=== PATIENT | male | born 1965 | race Hispanic/Latino ===

== ENCOUNTER 2022-12-16 15:43 | Emergency (ER) | payer OTHER ==
[~2022-12-16] VITALS: Ht 167.6 cm; Wt 78.9 kg
[2022-12-16 16:17] LABS: APPEARANCE,URINE CLEAR (CLEAR); BILIRUBIN,URINE NEGATIVE (NEGATIVE); COLOR,URINE YELLOW (YELLOW); GLUCOSE, URINE (UA) NEGATIVE (NEGATIVE); KETONES,URINE NEGATIVE (NEGATIVE); LEUKOCYTE ESTERASE ,URINE NEGATIVE Leu/uL (NEGATIVE); NITRATE,URINE NEGATIVE (NEGATIVE); OCCULT BLOOD,URINE NEGATIVE (NEGATIVE); PH,URINE 5.5 (5.0-8.0); PROTEIN,URINE 10 mg/dL (NEGATIVE); UROBILINOGEN,URINE 3 mg/dL (0.2-1.0)
[2022-12-16 16:24] LABS: BASOPHILS % (AUTO) 0.5 % (0.0-5.0); EOSINOPHILS % (AUTO) 2.5 % (0.0-8.0); HEMATOCRIT 49.4 % (42-54); LYMPHOCYTES % (AUTO) 15.6 % (21.0-51.0); MEAN CORPUSCULAR HEMOGLOBIN 34.7 pg (27.0-33.0); MEAN CORPUSCULAR HGB CONC 34.8 g/dL (32.0-36.0); MEAN CORPUSCULAR VOLUME 99.6 fL (79-99); MONOCYTES % (AUTO) 8.8 % (3.0-13.0); NEUTROPHILS % (AUTO) 72.2 % (40.0-77.0); PLATELET COUNT (AUTO) 256 K/uL (130-400); RED BLOOD CELL COUNT(AUTO) 4.96 MIL/uL (4.50-6.20); RED CELL DISTRIBUTION WIDTH 11.9 % (11.0-15.5); WHITE BLOOD COUNT (AUTO) 11.7 K/uL (4.8-10.8)
[2022-12-16 16:44] LABS: BACTERIA,URINE RARE /HPF (None Seen); MUCUS,URINE FEW LPF (None Seen); RBC,URINE 0-1 /HPF (0-1)
[2022-12-16 16:48] LABS: ALBUMIN 3.8 g/dL (3.5-5.0); CREATININE 0.9 mg/dL (0.5-1.5); POTASSIUM 3.2 mmol/L (3.5-5.1); TOTAL PROTEIN, SERUM 7.8 g/dL (6.0-8.3)
[2022-12-16] MEDS ORDERED: POTASSIUM BICARB/CIT AC 25 MEQ TABLET.EFF PO SCH (17:30)
[2022-12-16 21:05] VITALS: BP 116/60
== END 2022-12-16 21:11 | disposition home or self-care (01) ==
LOC: EDH 15:43
DX: K80.50 Calculus of bile duct without cholangitis or cholecystitis without obstruction (principal); R19.7 Diarrhea, unspecified; F17.200 Nicotine dependence, unspecified, uncomplicated; Z20.822 Contact with and (suspected) exposure to COVID-19
CPT/HCPCS: 99284; 74176; 76705; 87635; 84484; 80053; 83690; 85025; 87804 ×2; 83605; 81001; 36415; 93005; C9803

== ENCOUNTER 2024-04-26 11:55 | Emergency (ER) | payer SELFPAY ==
[~2024-04-26] VITALS: Ht 170.2 cm; Wt 79.4 kg
--- NOTE | 2024-04-26 12:19 | ERN ---
General Chief Complaint: Abdominal Pain Stated Complaint: EPIGASTRIC PAIN, LUQ PAIN Time Seen by MD: 11:58 Source: patient History of Present Illness Initial Comments Patient is a 58-year-old male coming in to be evaluated for epigastric and right upper quadrant pain. Patient states he has a history of gallstones. He states that the pain began yesterday and has been waxing and waning. Allergies: Coded Allergies: No Known Allergies (Unverified Allergy, Unknown, 12/16/22) Past Medical History Past Medical History: Gallstones, Kidney Stone Past Surgical History: None Social History Social History: Smokers, ETOH, Lives with family ROS Dictation CONSTITUTIONAL: No chills, no fever, no weakness, no diaphoresis, no malaise. HEAD/FACE: No signs of trauma. EENT: No eye pain, no blurred vision, no tearing, no double vision, no ear pain, no ear discharge, no nose pain, no nasal congestion, no throat pain, no throat swelling, no mouth pain. RESPIRATORY: No cough, no orthopnea, no SOB, no stridor, no wheezing. CARDIOVASCULAR: No chest pain, no edema, no palpitations, no syncope. GASTROINTESTINAL/ABDOMINAL: abdominal pain, no constipation, no diarrhea, nausea, no vomiting. GENITOURINARY: No abnormal discharge, no dysuria, no frequent urination, no hematuria. No complaints of pain in the genitals. MUSCULOSKELETAL: No back pain, no gout, no joint pain, no joint swelling, no muscle pain, no muscle stiffness, no neck pain. INTEGUMENTARY: No change in color, no change in hair/nails, no dryness, no lesion, no lumps, no rash. NEUROLOGICAL/PSYCH: No anxiety, not depressed, no emotional problem, no headache, no numbness, no pre-existing deficit, no history of seizures, no tremors, no weakness. HEMATOLOGIC/LYMPHATIC: Not anemic, no history of blood clots, no apparent bleeding, no bruising, glands not swollen. All Systems Negative, Except as Noted. Physical Exam Physical Exam Dictation VITAL SIGNS: Reviewed. GENERAL APPEARANCE: Alert, oriented x3, no acute distress, obese. HEAD AND FACE: Non-traumatic. EYES: PERRL, pink conjunctivas, eyelid no trauma, anterior chamber clear. EARS: Pinnas intact and no signs of trauma or erythema. Ear canals clear and no discharge. TMs no erythema. NOSE: No discharge, no bleeding. OROPHARYNX: Mouth normal, teeth no caries, tongue pink. Pharynx clear, no erythema. Tonsils no exudates, no abscesses noted. Mucous membrane moist. NECK: Supple, non-tender, no thyromegaly, no masses, no JVD, no bruits. BREAST: Deferred. CHEST: No tenderness, no crepitus, no paradoxical movement, no retractions. LUNGS: Clear, well-ventilated, symmetric, no rales, no wheezing, no rhonchi, no stridor, good breath sounds bilaterally. HEART: Regular rate, regular rhythm, no murmur, no gallops. VASCULAR: No peripheral edema. ABDOMEN: Soft, positive bowel sounds, nondistended, no guarding, ruq and epigastric tender, no rebound, no masses no hepatomegaly, no splenomegaly, no Michelle's sign, no hernias. RECTAL: Deferred. GENITAL: Deferred. NEUROLOGICAL: Normal speech, gross motor function intact, gross sensory function intact. MUSCULOSKELETAL: Neck nontender, full range of motion, back nontender, full range of motion. EXTREMITIES: Nontender, full range of motion. SKIN: Color pink, dry, no turgor, no rash, no lacerations, no abrasions, no contusions. LYMPHATICS: Deferred. Results Laboratory and Microbiology Lab and Micro Result Laboratory Tests Test 04/26/24 12:44 04/26/24 13:18 White Blood Count 12.8 K/uL (4.8-10.8) H Red Blood Count 5.12 MIL/uL (4.50-6.20) Hemoglobin 18.2 g/dL (14.0-18.0) H Hematocrit 51.7 % (42-54) Mean Corpuscular Volume 101.0 fL (79-99) H Mean Corpuscular Hemoglobin 35.5 pg (27.0-33.0) H Mean Corpuscular Hemoglobin Concent 35.2 g/dL (32.0-36.0) Red Cell Distribution Width 12.0 % (11.0-15.5) Platelet Count 279 K/uL (130-400) Mean Platelet Volume 9.7 fL (7.5-10.5) Immature Granulocyte % (Auto) 0.4 % (0-1) Neutrophils (%) (Auto) 81.8 % (40.0-77.0) H Lymphocytes (%) (Auto) 9.8 % (21.0-51.0) L Monocytes (%) (Auto) 6.9 % (3.0-13.0) Eosinophils (%) (Auto) 0.7 % (0.0-8.0) Basophils (%) (Auto) 0.4 % (0.0-5.0) Neutrophils # (Auto) 10.4 K/uL (1.8-7.7) H Lymphocytes # (Auto) 1.3 K/uL (1.0-4.8) Monocytes # (Auto) 0.9 K/uL (0.1-1.0) Eosinophils # (Auto) 0.09 K/uL (0.00-0.70) Basophils # (Auto) 0.05 K/uL (0.00-0.20) Absolute Immature Granulocyte (auto 0.05 K/uL (0-1) Nucleated Red Blood Cells 0.0 % (0.0-0.19) White Cell Morphology Comment See comments Sodium Level 140 mmol/L (136-145) Potassium Level 3.8 mmol/L (3.5-5.1) Chloride Level 102 mmol/L (101-111) Carbon Dioxide Level 31 mmol/L (21-32) Blood Urea Nitrogen 8 mg/dL (7-18) Creatinine 0.9 mg/dL (0.5-1.3) Glomerular Filtration Rate Calc 98 mL/min (>90) Random Glucose 109 mg/dL (70-105) H Total Calcium 9.3 mg/dL (8.5-10.1) Total Bilirubin 2.1 mg/dL (0.2-1.0) H Aspartate Amino Transf (AST/SGOT) 37 U/L (10-37) Alanine Aminotransferase (ALT/SGPT) 47 U/L (12-78) Alkaline Phosphatase 90 U/L (50-136) Troponin I High Sensitivity 6 ng/L (4-75) Total Protein 8.0 g/dL (6.0-8.3) Albumin 3.8 g/dL (3.5-5.0) Lipase 24 U/L (16-77) Urine Color YELLOW (YELLOW) Urine Appearance CLEAR (CLEAR) Urine pH 6.5 (5.0-8.0) Urine Specific [place] 1.021 (1.001-1.031) Urine Protein 10 mg/dL (NEGATIVE) H Urine Glucose (UA) NEGATIVE mg/dL (NEGATIVE) Urine Ketones 5 mg/dL (NEGATIVE) H Urine Occult Blood NEGATIVE (NEGATIVE) Urine Nitrate NEGATIVE (NEGATIVE) Urine Bilirubin NEGATIVE mg/dL (NEGATIVE) Urine Urobilinogen 12 mg/dL (0.2-1.0) H Urine Leukocyte Esterase NEGATIVE [place]/uL Urine RBC 2-5 /HPF (0-1) H Urine WBC 0-1 /HPF (0-1) Urine Bacteria None /HPF (None Seen) Labs Reviewed?: Yes EKG/XRAY/US/CT/MRI EKG Comment 04/26/2024 time 12:42 p.m. Ventricular rate 62 Sinus arrhythmias [place] [address] wave elevation or depression Ultrasound Comment [place] [address] [place] [address] IMAGING REPORT Signed PATIENT: HUY LIZ MR#: [id number] : 1965 SEX: M AGE: 58 LOCATION: [facility] ORDER 1216 STATUS: [facility] ER REPORT#: [id number] SERVICE 1215 REASON: ruq pain ORDERING PHYSICIAN: BERTA GARCIA MD PROCEDURE: [id number] - US ABDOMINAL RUQ\LTD US ABDOMINAL RUQ\E\LTD HISTORY: ruq pain COMPARISON: None FINDINGS: There is moderate fatty infiltration of the liver. There are no focal liver masses. The liver is mildly enlarged at 17 cm.There multiple stones in the gallbladder. There is no evidence of wall thickening or edema. Common duct is normal. Right kidney is normal with no evidence of mass, hydronephrosis or stone.The pancreas appears normal as well. IMPRESSION: 1. Cholelithiasis without evidence of acute cholecystitis. 2. Moderate fatty infiltration of the liver which is mildly enlarged. DICTATED BY: ANGELI HERNANDEZ MD DATE: 04/26/24 1318 ELECTRONICALLY SIGNED BY: ANGELI HERNANDEZ MD DATE: 04/26/24 1321 [facility] MDM: DIFFERENTIAL DIAGNOSIS: GASTRITIS, GERD, BILIARY COLIC PATIENT COMES TO THE ER PRESENTING WITH THE EPIGASTRIC DISCOMFORT. PATIENT DOES STATE HE HAS A HISTORY OF GALLSTONES. LABORATORY WORKUP NEGATIVE FOR ACUTE FINDINGS MILDLY ELEVATED T BILI PATIENT DOES HAVE A NEWLY DIAGNOSED FATTY LIVER AND HE STILL HAS CHOLELITHIASIS. PATIENT WILL BE DISCHARGED IN STABLE CONDITION PAIN-FREE I ADVISED HIM APPROPRIATE FOLLOW UP WITH SURGEON TO CONTINUE MONITORING GALLSTONES. ED Course Orders Procedure Category Date Status Time 12 Lead Ekg Tracing- EKG 04/26/24 Logged Technical 11:59 Chest 1vw RAD 04/26/24 Resulted 11:59 Cbc With Differential LAB 04/26/24 Complete 11:59 Urinalysis Profile LAB 04/26/24 Complete 11:59 Comprehensive LAB 04/26/24 Complete Metabolic Panel 12:15 Troponin I High LAB 04/26/24 Complete Sensitivity 12:15 Us Abdominal Ruq\Ltd US 04/26/24 Resulted 12:15 Pantoprazole 40mg Inj PHA 04/26/24 Complete (Protonix 40mg Inj 12:30 Lipase LAB 04/26/24 Complete 12:44 Lidocaine Hcl 2% PHA 04/26/24 Complete Viscous (Lidocaine Hcl 15:00 Mag/Alum/Simeth 30ml PHA 04/26/24 Complete (Maalox Plus 30ml) 15:00 Current Medications Medications (Trade) Dose Ordered Sig/Jessica Route PRN Reason Start Time Stop Time Status Last Admin Dose Admin Al Hydroxide/Mg Hydroxide (MAALox PLUS 30ML) 30 ml ONCE ONCE PO 04/26/24 15:00 04/26/24 15:01 DC 04/26/24 15:07 Lidocaine HCl (Lidocaine HCl 2% Viscous) 10 ml ONCE ONCE PO 04/26/24 15:00 04/26/24 15:01 DC 04/26/24 15:08 Pantoprazole Sodium (PROTonix 40MG INJ) 40 mg ONCE ONCE IVP 04/26/24 12:30 04/26/24 12:31 DC 04/26/24 13:15 Vital Signs Date Time Temp Pulse Resp B/P (MAP) Pulse Ox O2 Delivery O2 Flow Rate FiO2 04/26/24 13:29 97.9 75 16 145/86 98 Room Air* 0 21 04/26/24 11:56 97.9 75 16 148/81 98 Room Air 0 DX & DISP Disposition: Discharge Departure Impression: Primary Impression: Biliary colic Additional Impression: Gastritis Condition: Stable Scripts Pantoprazole Sodium (Protonix) 40 Mg Ectab 1 TAB PO DAILY for 30 Days, #30 TAB 0 Refills Prov: BERTA GARCIA MD 04/26/24 Additional Instructions: FOLLOW-UP WITH PRIMARY CARE PROVIDER IN 1 TO 2 DAYS. TAKE MEDICATIONS DIRECTED HERE IN THE EMERGENCY ROOM. OKAY TO CONTINUE HOME MEDICATIONS UNLESS OTHERWISE DISCUSSED DURING YOUR VISIT IN THE EMERGENCY ROOM TODAY. RETURN TO YOUR NEAREST EMERGENCY ROOM IF SYMPTOMS WORSEN OR IF THERE IS NO IMPROVEMENT. CALL 911 IF YOU NEED IMMEDIATE ASSISTANCE. TAKE TYLENOL [id number] NEEDED AND IF NO CONTRAINDICATIONS ARE PRESENT. INCREASE ORAL HYDRATION. A WOUND CULTURE OR URINE CULTURE WAS ORDERED HERE IN THE EMERGENCY ROOM DEPARTMENT PLEASE FOLLOW-UP WITH PRIMARY CARE PROVIDER AND ADVISE THEM TO GET REPEAT PORTS FROM OUR FACILITY. IF YOU HAD ANY HOLLY WRAP/SPLINTS THAT WERE APPLIED HERE, PLEASE DO NOT REMOVE THEM UNTIL YOU SEE YOUR PRIMARY CARE OR SPECIALTY. REFERRALS: Referrals: NONE (PCP) JOEL ZAMUDIO MD, LUIS A MD Time of Disposition: 15:20 BERTA GARCIA MD Apr 26, 2024 12:19
[2024-04-26 12:58] LABS: BASOPHILS # (AUTO) 0.05 K/uL (0.00-0.20); BASOPHILS % (AUTO) 0.4 % (0.0-5.0); EOSINOPHILS # (AUTO) 0.09 K/uL (0.00-0.70); EOSINOPHILS % (AUTO) 0.7 % (0.0-8.0); HEMATOCRIT 51.7 % (42-54); IMMATURE GRANULOCYTE ABSOLUTE 0.05 K/uL (0-1); LYMPHOCYTES # (AUTO) 1.3 K/uL (1.0-4.8); LYMPHOCYTES % (AUTO) 9.8 % (21.0-51.0); MEAN CORPUSCULAR HEMOGLOBIN 35.5 pg (27.0-33.0); MEAN CORPUSCULAR HGB CONC 35.2 g/dL (32.0-36.0); MONOCYTES # (AUTO) 0.9 K/uL (0.1-1.0); MONOCYTES % (AUTO) 6.9 % (3.0-13.0); NEUTROPHILS # (AUTO) 10.4 K/uL (1.8-7.7); NEUTROPHILS % (AUTO) 81.8 % (40.0-77.0); PLATELET COUNT (AUTO) 279 K/uL (130-400); RED BLOOD CELL COUNT(AUTO) 5.12 MIL/uL (4.50-6.20); WHITE BLOOD COUNT (AUTO) 12.8 K/uL (4.8-10.8)
[2024-04-26 13:09] LABS: CREATININE 0.9 mg/dL (0.5-1.3); POTASSIUM 3.8 mmol/L (3.5-5.1)
--- NOTE | 2024-04-26 13:10 | HMCIMG ---
CHEST 1VW REASON: ABD PAIN COMPARISON: None. FINDINGS: Single view of the chest was obtained. Lungs are clear. Heart size is normal. There is no pulmonary vascular congestion. Mediastinum and bony thorax appear unremarkable. IMPRESSION: 1. Normal single view chest x-ray.
[2024-04-26 13:13] LABS: ALBUMIN 3.8 g/dL (3.5-5.0); BILIRUBIN,TOTAL 2.1 mg/dL (0.2-1.0)
[2024-04-26] MEDS: PANTOPrazole 40 MG/VIAL IVP ONE (13:15)
--- NOTE | 2024-04-26 13:21 | HMCIMG ---
US ABDOMINAL RUQ\E\LTD HISTORY: ruq pain COMPARISON: None FINDINGS: There is moderate fatty infiltration of the liver. There are no focal liver masses. The liver is mildly enlarged at 17 cm.There multiple stones in the gallbladder. There is no evidence of wall thickening or edema. Common duct is normal. Right kidney is normal with no evidence of mass, hydronephrosis or stone.The pancreas appears normal as well. IMPRESSION: 1. Cholelithiasis without evidence of acute cholecystitis. 2. Moderate fatty infiltration of the liver which is mildly enlarged.
[2024-04-26 13:29] VITALS: BP 145/86; PULSE 75; RESP 16; TEMP 97.9; O2SAT 98
[2024-04-26 14:25] LABS: APPEARANCE,URINE CLEAR (CLEAR); BILIRUBIN,URINE NEGATIVE (NEGATIVE); COLOR,URINE YELLOW (YELLOW); GLUCOSE, URINE (UA) NEGATIVE (NEGATIVE); KETONES,URINE 5 mg/dL (NEGATIVE); LEUKOCYTE ESTERASE ,URINE NEGATIVE Leu/uL (NEGATIVE); NITRATE,URINE NEGATIVE (NEGATIVE); OCCULT BLOOD,URINE NEGATIVE (NEGATIVE); PH,URINE 6.5 (5.0-8.0); PROTEIN,URINE 10 mg/dL (NEGATIVE); UROBILINOGEN,URINE 12 mg/dL (0.2-1.0)
[2024-04-26 14:33] LABS: ADD UA MICROSCOPIC YES
[2024-04-26 14:35] LABS: MUCUS,URINE RARE LPF (None Seen); WBC,URINE 0-1 /HPF (0-1)
[2024-04-26] MEDS: MAG/ALUM/SIMETH 30 ML UDCUP PO ONE (15:07)
[2024-04-26] MEDS: LIDOCAINE HCL 2% VISCOUS 15 ML UDCUP PO ONE (15:08)
[2024-04-26] MEDS ORDERED: PANT40TA55 PO (15:22)
--- NOTE | 2024-04-26 21:43 | EKG ---
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
== END 2024-04-26 15:23 | disposition home or self-care (01) ==
LOC: EDH 11:55
DX: K29.70 Gastritis, unspecified, without bleeding (principal); K80.50 Calculus of bile duct without cholangitis or cholecystitis without obstruction; F17.200 Nicotine dependence, unspecified, uncomplicated
CPT/HCPCS: 99285; 96374; 76705; 71045; 84484; 80053; 83690; 85025; 81001; 36415; 93005; J2470